=== PATIENT | male | born 1950 | race Caucasian/White ===

== ENCOUNTER 2023-02-17 04:30 | Inpatient (IN) | payer MEDICARE, BC ==
[~2023-02-17] VITALS: Ht 177.8 cm; Wt 87.1 kg
[2023-02-17] MEDS ORDERED: APIX5TAB PO ×2 (05:00→05:30)
[2023-02-17] MEDS ORDERED: ACETAMINOPHEN/CODEINE 300-30 MG TABLET PO ONE (05:15)
[2023-02-17] MEDS ORDERED: SENN8.6T19 PO (05:30)
[2023-02-17] MEDS ORDERED: DOXY-326 PO (05:30)
[2023-02-17] MEDS ORDERED: AMIO200T5 PO (05:30)
[2023-02-17] MEDS ORDERED: HYDR5TAB13 PO (05:30)
[2023-02-17] MEDS ORDERED: CEFP200T14 PO (05:30)
[2023-02-17] MEDS ORDERED: ATOR40TA PO (05:30)
[2023-02-17] MEDS ORDERED: HYDR-4322 PO (05:30)
[2023-02-17] MEDS ORDERED: FAMO20TA8 PO (05:30)
[2023-02-17] MEDS ORDERED: METR-147 PO (05:30)
[2023-02-17 05:36] LABS: BASOPHILS % (AUTO) 0.5 % (0.0-2.0); EOSINOPHILS # (AUTO) 0.1 K/uL (0.0-0.7); EOSINOPHILS % (AUTO) 1.1 % (0.0-7.0); HEMATOCRIT 33.9 % (36.7-47.1); HEMOGLOBIN 10.7 g/dL (12.5-16.3); LYMPHOCYTES # (AUTO) 1.5 K/uL (0.8-4.8); LYMPHOCYTES % (AUTO) 16.6 % (20.5-51.5); MEAN CORPUSCULAR HEMOGLOBIN 29.3 uug (23.8-33.4); MEAN CORPUSCULAR HGB CONC 31 g/dL (32.5-36.3); MEAN CORPUSCULAR VOLUME 93.2 fL (73.0-96.2); MONOCYTES % (AUTO) 11.4 % (0.0-11.0); NEUTROPHILS # (AUTO) 6.2 K/uL (1.8-8.9); NEUTROPHILS % (AUTO) 70.4 % (38.5-71.5); PLATELET COUNT (AUTO) 349 K/uL (152-348); RED BLOOD CELL COUNT(AUTO) 3.64 MIL/uL (4.06-5.63); RED CELL DISTRIBUTION WIDTH 24.4 % (12.1-16.2); WHITE BLOOD COUNT (AUTO) 8.8 K/uL (3.6-10.2)
[2023-02-17 05:38] LABS: DIFFERENTIAL COMMENT 1
[2023-02-17] MEDS ORDERED: ACETAMINOPHEN/CODEINE 300-30 MG TABLET ONE (05:38)
[2023-02-17 05:44] LABS: CALCIUM 8.9 mg/dL (8.5-10.1); CREATININE 4.9 mg/dL (0.6-1.3); POTASSIUM 3.1 mmol/L (3.5-5.1)
[2023-02-17 05:56] LABS: LACTIC ACID 2.1 mmol/L (0.4-2.0)
[2023-02-17 05:58] LABS: ALBUMIN 2.4 g/dL (3.4-5.0); BILIRUBIN,DIRECT 0.6 mg/dL (0.0-0.2); BILIRUBIN,TOTAL 1.2 mg/dL (0.2-1.0); TOTAL PROTEIN, SERUM 6.6 g/dL (6.4-8.2)
[2023-02-17] MEDS ORDERED: ONDANSETRON 4 MG/2 ML VIAL IV PRN (06:45)
[2023-02-17] MEDS ORDERED: IPRATROPIUM BROMIDE 0.5 MG/2.5 ML NEBU NEB PRN (06:45)
[2023-02-17] MEDS ORDERED: ACETAMINOPHEN 325 MG TABLET PO PRN (06:45)
[2023-02-17] MEDS ORDERED: REMEDY ESSENTIAL ZINC PASTE 113 GM TP PRN (06:45)
[2023-02-17] MEDS ORDERED: MAGNESIUM HYDROXIDE 30 ML LIQUID UDC PO PRN (06:45)
[2023-02-17] MEDS ORDERED: ALBUTEROL SULFATE 2.5 MG/3 ML NEBU NEB PRN (06:45)
[2023-02-17] MEDS: PANTOPRAZOLE SODIUM 40 MG VIAL IV SCH (09:00)
[2023-02-17] MEDS ORDERED: HYDROCORTISONE 10 MG TABLET PO SCH (09:00)
[2023-02-17] MEDS: SENNOSIDES 1 TABLET PO SCH (09:00)
[2023-02-17] MEDS: AMIODARONE HCL 200 MG TABLET PO SCH (09:30)
[2023-02-17] MEDS ORDERED: HYDROCORTISONE 10 MG TABLET ONE (10:08)
[2023-02-17] MEDS ORDERED: ATORVASTATIN 20 MG TABLET ONE (10:09)
[2023-02-17] MEDS ORDERED: AMIODARONE HCL 200 MG TABLET ONE (10:10)
[2023-02-17] MEDS: ATORVASTATIN 40 MG TABLET PO SCH (11:00)
[2023-02-17] MEDS: APIXABAN 5 MG TABLET PO SCH (18:00)
[2023-02-17] MEDS ORDERED: IV NORMAL SALINE 500 ML BAG IV ONE (18:15)
[2023-02-17] MEDS ORDERED: IV NORMAL SALINE 1000 ML BAG IV ONE (18:45)
[2023-02-17] MEDS ORDERED: ALBUMIN HUMAN 25% 100 ML ONE (19:02)
[2023-02-17] MEDS ORDERED: ALBUMIN HUMAN 25% (12.5 GM/50 ML ) BOTTLE IV ONE (19:30)
[2023-02-17] MEDS ORDERED: ALBUMIN HUMAN 25% (12.5 GM/50 ML ) BOTTLE IV PRN (19:45)
[2023-02-17] MEDS ORDERED: NOREPINEPHRINE BITARTRATE 4 MG/4 ML VIAL IV ONE ×5 (20:35→22:06)
[2023-02-17 21:00] VITALS: BP 92/55; TEMP 97.4; O2SAT 100
[2023-02-17] MEDS ORDERED: IV NORMAL SALINE 250 ML IV PRN (21:30)
[2023-02-17] MEDS ORDERED: CEFTAZIDIME 1 G VIAL ONE (21:53)
[2023-02-17 22:00] VITALS: BP 126/33; O2SAT 100
[2023-02-17] MEDS: NOREPINEPHRINE BITARTRATE 32 MG in IV NORMAL SALINE 218 ML IV PRN (22:00)
[2023-02-17] MEDS ORDERED: CEFEPIME HCL 1 G in IV DEXTROSE 5% 50 ML IV ONE (22:00)
[2023-02-17 23:00] VITALS: BP 117/29; O2SAT 75
[2023-02-18] VITALS (49 sets, daily range): BP systolic 75–157; BP diastolic 22–130; TEMP 97.5–100.6; O2SAT 97–100
[2023-02-18 05:10] LABS: BASOPHILS % (AUTO) 0.3 % (0.0-2.0); EOSINOPHILS % (AUTO) 0.4 % (0.0-7.0); LYMPHOCYTES # (AUTO) 0.9 K/uL (0.8-4.8); LYMPHOCYTES % (AUTO) 7.5 % (20.5-51.5); MEAN CORPUSCULAR HEMOGLOBIN 28.2 uug (23.8-33.4); MEAN CORPUSCULAR HGB CONC 30 g/dL (32.5-36.3); MEAN CORPUSCULAR VOLUME 92.9 fL (73.0-96.2); MONOCYTES # (AUTO) 1.2 K/uL (0.1-1.30); MONOCYTES % (AUTO) 10.5 % (0.0-11.0); NEUTROPHILS # (AUTO) 9.7 K/uL (1.8-8.9); NEUTROPHILS % (AUTO) 81.3 % (38.5-71.5); PLATELET COUNT (AUTO) 260 K/uL (152-348); RED BLOOD CELL COUNT(AUTO) 3.55 MIL/uL (4.06-5.63); RED CELL DISTRIBUTION WIDTH 23.8 % (12.1-16.2); WHITE BLOOD COUNT (AUTO) 11.9 K/uL (3.6-10.2)
[2023-02-18 05:20] LABS: DIFFERENTIAL COMMENT 1
[2023-02-18 05:33] LABS: CALCIUM 8.1 mg/dL (8.5-10.1); POTASSIUM 2.9 mmol/L (3.5-5.1)
[2023-02-18] MEDS: NOREPINEPHRINE BITARTRATE 32 MG in IV NORMAL SALINE 218 ML IV PRN ×2 (07:40→17:23)
[2023-02-18] MEDS: SENNOSIDES 1 TABLET PO SCH (09:00)
[2023-02-18] MEDS: HYDROCORTISONE SOD SUCCINATE 100 MG/2 ML VIAL IV SCH ×2 (09:53→20:57)
[2023-02-18] MEDS: PANTOPRAZOLE SODIUM 40 MG VIAL IV SCH (09:53)
[2023-02-18] MEDS: APIXABAN 5 MG TABLET PO SCH ×2 (14:42→16:04)
[2023-02-18] MEDS: AMIODARONE HCL 200 MG TABLET PO SCH (14:42)
[2023-02-18] MEDS ORDERED: NEUTRA PHOS PACKET PO ONE (15:30)
[2023-02-18] MEDS: ALPRAZOLAM 0.25 MG TABLET PO PRN ×2 (15:54→23:59)
[2023-02-18] MEDS ORDERED: ACETAMINOPHEN 650 MG SUPP.RECT RC PRN (16:15)
[2023-02-18] MEDS ORDERED: MIDO5TAB5 PO (16:18)
[2023-02-18] MEDS ORDERED: PANT40TA2 PO (16:24)
[2023-02-18 16:31] LABS: ABG BASE EXCESS -2.1 mmol/L; ABG HCO3 22.5 mmol/L; ABG PCO2 38.1 mmHg (35.0-45.0); ABG PO2 106.1 mmHg (75.0-100.0); ABG SITE LEFT RADIAL; ABG TOTAL HEMOGLOBIN 11.5 G/dL (13.5-18.0); COHb 0.5 % (0.5-1.5); MetHb 0.2 % (0.0-1.5); O2Hb 97.5 % (94.0-97.0); VENT MODE BIPAP - 15/5
[2023-02-18] MEDS: ATORVASTATIN 40 MG TABLET PO SCH (20:57)
[2023-02-18] MEDS ORDERED: CEFEPIME HCL 1 G in IV DEXTROSE 5% 50 ML IV SCH (22:00)
[2023-02-19] VITALS (13 sets, daily range): BP systolic 58–131; BP diastolic 18–97; TEMP 97–98.2; O2SAT 97–100
[2023-02-19] MEDS ORDERED: LORAZEPAM 2 MG/1 ML VIAL IV PRN (00:30)
[2023-02-19] MEDS: POTASSIUM CHLORIDE 50 ML IV SCH ×2 (00:53→01:48)
[2023-02-19] MEDS: NOREPINEPHRINE BITARTRATE 32 MG in IV NORMAL SALINE 218 ML IV PRN (02:50)
[2023-02-19 05:07] LABS: BASOPHILS % (AUTO) 0.3 % (0.0-2.0); DIFFERENTIAL COMMENT 0; HEMATOCRIT 30.8 % (36.7-47.1); HEMOGLOBIN 9.3 g/dL (12.5-16.3); LYMPHOCYTES # (AUTO) 1.2 K/uL (0.8-4.8); LYMPHOCYTES % (AUTO) 8.4 % (20.5-51.5); MEAN CORPUSCULAR HEMOGLOBIN 28.3 uug (23.8-33.4); MEAN CORPUSCULAR HGB CONC 30 g/dL (32.5-36.3); MEAN CORPUSCULAR VOLUME 94.1 fL (73.0-96.2); MONOCYTES # (AUTO) 1.2 K/uL (0.1-1.30); MONOCYTES % (AUTO) 8.8 % (0.0-11.0); NEUTROPHILS # (AUTO) 11.7 K/uL (1.8-8.9); NEUTROPHILS % (AUTO) 82.5 % (38.5-71.5); PLATELET COUNT (AUTO) 203 K/uL (152-348); RED BLOOD CELL COUNT(AUTO) 3.27 MIL/uL (4.06-5.63); RED CELL DISTRIBUTION WIDTH 24.8 % (12.1-16.2); WHITE BLOOD COUNT (AUTO) 14.2 K/uL (3.6-10.2)
== END 2023-02-19 10:30 | DRG 919 ==
LOC: ER 04:33 → TRANSITION 06:30 → CCU 19:57
PROVIDERS: ADMIT Nurse Practitioner Acute Care; ATTEND Nurse Practitioner Acute Care
PROC: 5A09457 Assistance with Respiratory Ventilation, 24-96 Consecutive Hours, Continuous Positive Airway Pressure (ICD-10-PCS; principal; 2023-02-17)
PROC: 02HV33Z Insertion of Infusion Device into Superior Vena Cava, Percutaneous Approach (ICD-10-PCS; 2023-02-17)
PROC: B548ZZA Ultrasonography of Superior Vena Cava, Guidance (ICD-10-PCS; 2023-02-17)
PROC: 5A1D70Z Performance of Urinary Filtration, Intermittent, Less than 6 Hours Per Day (ICD-10-PCS; 2023-02-17)
DX: T85.71XA Infection and inflammatory reaction due to peritoneal dialysis catheter, initial encounter (principal); A41.9 Sepsis, unspecified organism; K65.9 Peritonitis, unspecified; R65.21 Severe sepsis with septic shock; J96.01 Acute respiratory failure with hypoxia; G92.8 Other toxic encephalopathy; J15.9 Unspecified bacterial pneumonia; I50.33 Acute on chronic diastolic (congestive) heart failure; N18.6 End stage renal disease; I13.2 Hypertensive heart and chronic kidney disease with heart failure and with stage 5 chronic kidney disease, or end stage renal disease; E87.20 Acidosis, unspecified; E44.0 Moderate protein-calorie malnutrition; E27.40 Unspecified adrenocortical insufficiency; Z51.5 Encounter for palliative care; Z66 Do not resuscitate; Y82.8 Other medical devices associated with adverse incidents; Y92.89 Other specified places as the place of occurrence of the external cause; Z99.2 Dependence on renal dialysis; I48.0 Paroxysmal atrial fibrillation; I25.10 Atherosclerotic heart disease of native coronary artery without angina pectoris; Z87.01 Personal history of pneumonia (recurrent); E86.1 Hypovolemia; E78.5 Hyperlipidemia, unspecified; E87.6 Hypokalemia; E88.09 Other disorders of plasma-protein metabolism, not elsewhere classified; Z79.01 Long term (current) use of anticoagulants; Z79.899 Other long term (current) drug therapy; D63.8 Anemia in other chronic diseases classified elsewhere
CPT/HCPCS: 36415; 36600; 71045; 83605; 83735; 84100; 84484; 85025; 87040; 90937; 93005; 93307; 94660; 94760; 99082-TC; A4606; A4663; A6209; A6213; C9113; G0378; J0692; J0713; J1720; J2060; J3480; J3490; J3590; J7040; P9047